=== PATIENT | male | born 1980 ===

== ENCOUNTER 2018-03-17 05:48 | Day surgery (SDC) | payer BC ==
[~2018-03-17] VITALS: Ht 193 cm; Wt 133.8 kg
[~2018-03-17 05:48] MED LIST: ALBU90OI6 INH; ALLEGRA ALLERGY60 MG PO; BUDE32NIS; GABA300 PO; GLUCHON PO; HYDACE5 PO; Omeprazole20 M1 PO; RHINOCORT ALL8.43 ML; RXHYDACE PO; [UNRECOGNIZED DRUG - OTHER]
== END 2018-03-17 22:39 | disposition home or self-care (01) ==
LOC: ORSCMMR 05:48 → ORD 07:30 → ORSCMMR 07:30
PROVIDERS: Orthopaedic Surgery
PROC: 0RBL0ZZ Excision of Right Elbow Joint, Open Approach (ICD-10-PCS; principal; 2018-03-17 07:30)
DX: M25.721 Osteophyte, right elbow (principal); J45.909 Unspecified asthma, uncomplicated; K21.9 Gastro-esophageal reflux disease without esophagitis; E66.9 Obesity, unspecified; Z68.35 Body mass index [BMI] 35.0-35.9, adult; Z79.899 Other long term (current) drug therapy
CPT/HCPCS: 73070; J0690; J1100; J1200; J1885; J2250; J2405; J3010; J7120

== ENCOUNTER → 2018-12-08 | Outpatient (CLI) | payer BC ==
[~2018-12-08] MED LIST changes: +FEBU40TA PO; +KETO60I IM
[2018-12-11 04:07] LABS: COTININE Negative ng/mL (Cutoff=300)
== END | disposition home or self-care (01) ==
LOC: LAB SHORT 13:45 → OLS 13:45
PROVIDERS: Orthopaedic Surgery
DX: Z01.812 Encounter for preprocedural laboratory examination (principal); M17.11 Unilateral primary osteoarthritis, right knee

== ENCOUNTER 2019-01-26 09:44 | Day surgery (SDC) | payer BC ==
[~2019-01-26] VITALS: Ht 198.1 cm; Wt 130.4 kg
--- NOTE | 2019-01-26 10:18 | NUR ---
History, Chart, Medications and Allergies reviewed before start of procedure. Patient confirms NPO status and agrees with scheduled surgery. NOZIN NASAL ACTIVITY ASSISTANT X3 AMPULES TO NARES BILREE.
--- NOTE | 2019-01-26 15:11 | NUR ---
PT WALKING WITH PHYSICAL THERAPY AT THIS TIME
--- NOTE | 2019-01-26 16:59 | NUR ---
POST OP: REPORT RECIEVED FROM HELMET COVERER TAMI. PT TO UNIT AT ABOUT 1320. UPON ASSESSMENT PT IS IN NO VISABLE DISTRESS, A/O. DENIES PAIN AT THIS TIME, SURGICAL SITE WNL. WILL CTM.
--- NOTE | 2019-01-26 19:19 | NUR ---
SUMMARY: PT IS POD0 R TKA, HAS DONE WELL SINCE RECIEVED POST OP. A/O, VSS. ABLE TO HAVE 1 SESSION WITH PHYSICAL THERAPY. MEDICATED FOR PAIN, SEE EMAR. TOLERATING REG DIET AND VOIDING. SURGICAL SITE WNL. REPORT GIVEN TO [place] RG.
--- NOTE | 2019-01-27 01:30 | NUR ---
0130: RECEIVED REPORT FROM PREVIOUS RN AND ASSUMED CARE. PT RESTING COMFORTABLY IN BED WITH CALL LIGHT IN REACH.
[2019-01-27 03:51] LABS: BASOPHILS ABSOLUTE AUTO 0.02 K/mm3 (0.00-0.23); BASOPHILS PERCENT AUTO 0 % (0-2); EOSINOPHILS ABSOLUTE AUTO 0.01 K/mm3 (0.00-0.68); EOSINOPHILS PERCENT AUTO 0 % (0-6); Hematocrit 39.6 % (37.0-53.0); Hemoglobin 13.7 g/dL (13.5-17.5); IMMATURE GRAN ABSOLUTE AUTO 0.06 K/mm3 (0.00-0.10); IMMATURE GRAN PERCENT AUTO 1 % (0-1); LYMPHOCYTES ABSOLUTE AUTO 1.47 K/mm3 (0.84-5.20); LYMPHOCYTES PERCENT AUTO 11 % (21-46); MONOCYTES ABSOLUTE AUTO 0.94 K/mm3 (0.16-1.47); MONOCYTES PERCENT AUTO 7 % (4-13); Mean Corpuscular HGB 32.1 pg (26.0-34.0); Mean Corpuscular HGB Conc 34.6 g/dL (31.5-36.5); Mean Corpuscular Volume 93 fL (80-100); Mean Platelet Volume 10.6 fL (9.1-12.4); NEUTROPHILS ABSOLUTE AUTO 10.46 K/mm3 (1.96-9.15); NEUTROPHILS PERCENT AUTO 81 % (41-73); Platelet Count 150 K/mm3 (150-400); RDW Coefficient Variation 13.4 % (11.7-14.2); RDW Standard Deviation 44.3 fL (35.1-46.3); Red Blood Cell Count 4.27 M/mm3 (4.30-5.90); White Blood Cell Count 12.96 K/mm3 (4.00-11.30)
[2019-01-27 04:10] LABS: Anion Gap 9 mmol/L (6-16); Blood Urea Nitrogen 15 mg/dL (8-24); Bun/Creatinine Ratio 17.9 (12.0-20.0); CO2, Blood 23 mmol/L (21-32); Calcium, Blood 8.2 mg/dL (8.5-10.1); Chloride, Blood 107 mmol/L (98-108); Creatinine, Blood 0.84 mg/dL (0.60-1.20); Glomerular Filtration Rate >60 (60-); Glucose, Blood 159 mg/dL (70-99); Potassium, Blood 4.7 mmol/L (3.5-5.5); Sodium, Blood 139 mmol/L (136-145)
--- NOTE | 2019-01-27 06:47 | NUR ---
SUMMARY: POD [address] NELSON. VSS, AFEBRILE, ROOM AIR. TOLERATING REG DIET, VOIDING WELL. AMBULATES HALLS WITH FWW X2 THIS SHIFT. PAIN WELL CONTROLLED WITH 10MG OXYCODONE. ANTICIPATE PT/OT AND DC HOME LATER THIS DAY.
[2019-01-27] MEDS ORDERED: Percocet 5-3251 EACH PO (09:16)
[2019-01-27] MEDS ORDERED: Aspir 8181 MG PO (09:17)
[2019-01-27] MEDS ORDERED: Celebrex200 MG PO (09:18)
--- NOTE | 2019-01-27 10:07 | NUR ---
PATIENT D/C'D HOME AT THIS TIME W/SPOUSE. PT STATES UNDERSTANDING OF MEDS, WOUND CARE, ACTIVITY, F/U APPT, OP PT, ETC. PAIN CONTROLLED WITH PO MEDS PER PT. VOIDING, TOLERATING PO. NO ACUTE CHANGES OR C/O AT THIS TIME.
== END 2019-01-27 10:10 | disposition home or self-care (01) ==
LOC: ORSCMMR 09:44 → ORD 10:45 → SURS 13:23 → ORSCMMR 01-27 10:10
PROVIDERS: Orthopaedic Surgery
PROC: 0SRC06A Replacement of Right Knee Joint with Oxidized Zirconium on Polyethylene Synthetic Substitute, Uncemented, Open Approach (ICD-10-PCS; principal; 2019-01-26 10:45)
DX: M17.31 Unilateral post-traumatic osteoarthritis, right knee (principal); Z01.818 Encounter for other preprocedural examination; J45.909 Unspecified asthma, uncomplicated; K21.9 Gastro-esophageal reflux disease without esophagitis; Z79.899 Other long term (current) drug therapy
CPT/HCPCS: 36415; 73560-RT; 80048; 85025; 86850; 86900; 86901; 88300; 97110; 97116; 97161; 97530; C1776; J0171; J0690; J0735; J1100; J1885; J2250; J2405; J2704; J2795; J3010; J7120

== ENCOUNTER 2019-03-16 10:08 | Day surgery (SDC) | payer BC ==
[~2019-03-16] VITALS: Ht 198.1 cm; Wt 126.7 kg
[~2019-03-16 10:08] MED LIST changes: +Aspir 8181 MG PO; +Celebrex200 MG PO; +IBUP600 PO; +Percocet 5-3251 EACH PO
--- NOTE | 2019-03-16 10:51 | NUR ---
Ambulatory in Day Surgery History, Chart, Medications and Allergies reviewed before start of procedure. Lungs clear T/O to Auscultation. Pre-Op teaching done. Pt verbalizes understanding. Patient States Post-Procedure ride home has been arranged.
--- NOTE | 2019-03-16 13:33 | NUR ---
Discharge instructions reviewed with patient. Patient verbalizes understanding. Copy given to patient to take home. Ambulated to BR with cane, steady gait. very painful. Ice therapy supplied for pt. Discharged via wheelchair to private car for ride home.
== END 2019-03-16 23:31 | disposition home or self-care (01) ==
LOC: ORSCMMR 10:08
PROVIDERS: Orthopaedic Surgery
PROC: 0SNCXZZ Release Right Knee Joint, External Approach (ICD-10-PCS; principal; 2019-03-16 11:00)
DX: M24.661 Ankylosis, right knee (principal); J45.909 Unspecified asthma, uncomplicated; Z79.899 Other long term (current) drug therapy
CPT/HCPCS: J1100; J1885; J2250; J2405; J2704; J3010; J3370; J7120

== ENCOUNTER 2020-02-11 08:11 | Day surgery (SDC) | payer BC ==
[~2020-02-11] VITALS: Ht 198.1 cm; Wt 133.4 kg
[~2020-02-11 08:11] MED LIST changes: +MELO7.5 PO
--- NOTE | 2020-02-11 09:10 | NUR ---
Ambulatory in Day Surgery. Surgical site prepped with 2% Chlorhexidine cloth wipe. Kassie Paws warming gown applied. History, Chart, Medications and Allergies reviewed before start of procedure.Lungs clear T/O to Auscultation. Patient confirms NPO status and agrees with scheduled surgery. Pre-Op teaching done. Pt verbalizes understanding. Patient States Post-Procedure ride home has been arranged. Patient reports completing Chlorhexadine shower X2 prior to admission to hospital.
--- NOTE | 2020-02-11 13:33 | NUR ---
Patient up to Ambulate independently. Gait steady. Dressing to procedure site clean, dry, intact with no visible drainage, swelling, erythema or bruising noted. Patient States Post-Procedure ride home has been arranged. Discharged via wheelchair to private car for ride home.
== END 2020-02-11 13:22 | disposition home or self-care (01) ==
LOC: ORSCMMR 08:11 → ORD 09:30 → ORSCMMR 13:22
PROVIDERS: Surgery
PROC: 8E0W4CZ Robotic Assisted Procedure of Trunk Region, Percutaneous Endoscopic Approach (ICD-10-PCS; principal; 2020-02-11 09:30)
PROC: 0YU54JZ Supplement Right Inguinal Region with Synthetic Substitute, Percutaneous Endoscopic Approach (ICD-10-PCS; principal; 2020-02-11 09:30)
DX: K40.91 Unilateral inguinal hernia, without obstruction or gangrene, recurrent (principal)
CPT/HCPCS: 49651; S2900; A9270; C1781; J0690; J1100; J1885; J2250; J2405; J2704; J3010; J7120

== ENCOUNTER 2020-03-06 11:36 | Day surgery (SDC) | payer BC ==
[~2020-03-06] VITALS: Ht 198.1 cm; Wt 136.6 kg
== END 2020-03-06 15:28 | disposition home or self-care (01) ==
LOC: ORSCSDS 11:36
PROVIDERS: Podiatrist Foot & Ankle Surgery
PROC: 0LBV0ZZ Excision of Right Foot Tendon, Open Approach (ICD-10-PCS; principal; 2020-03-06 13:00)
PROC: 0LQN0ZZ Repair Right Lower Leg Tendon, Open Approach (ICD-10-PCS; principal; 2020-03-06 13:00)
DX: M76.61 Achilles tendinitis, right leg (principal); M77.31 Calcaneal spur, right foot; J45.909 Unspecified asthma, uncomplicated; Z79.899 Other long term (current) drug therapy; E66.9 Obesity, unspecified; Z68.34 Body mass index [BMI] 34.0-34.9, adult
CPT/HCPCS: C1713; J0171; J0690; J1100; J2250; J2405; J2704; J3010; J7120

== ENCOUNTER 2023-04-21 16:34 | Emergency (ER) | payer BC ==
[~2023-04-21] VITALS: Ht 198.1 cm; Wt 131.1 kg
[2023-04-21 16:38] VITALS: BP 165/105
[2023-04-21] MEDS ORDERED: Vibramycin100 MG PO (17:51)
== END 2023-04-21 17:49 | disposition home or self-care (01) ==
LOC: ER 16:34
DX: J32.0 Chronic maxillary sinusitis (principal); Z79.899 Other long term (current) drug therapy; Z88.0 Allergy status to penicillin; Z88.1 Allergy status to other antibiotic agents; Z87.891 Personal history of nicotine dependence
CPT/HCPCS: 70450; 70486; 99284-25

== ENCOUNTER 2024-03-06 20:16 | Emergency (ER) | payer BC ==
[~2024-03-06] VITALS: Ht 198.1 cm; Wt 129.3 kg
[~2024-03-06 20:16] MED LIST changes: +Vibramycin100 MG PO
[2024-03-06 20:25] VITALS: BP 135/116
[2024-03-06] MEDS ORDERED: Diphth,Pertuss(Acell),Tet Vac 0.5 ML VIAL IM ONE (20:25)
== END 2024-03-06 21:32 | disposition home or self-care (01) ==
LOC: ER 20:16
DX: S51.811A Laceration without foreign body of right forearm, initial encounter (principal); G89.11 Acute pain due to trauma; Z88.0 Allergy status to penicillin; Z88.1 Allergy status to other antibiotic agents; Z79.899 Other long term (current) drug therapy; Z96.651 Presence of right artificial knee joint; W26.0XXA Contact with knife, initial encounter
CPT/HCPCS: 12001; 73090; 90471; 90715; 99283-25

== ENCOUNTER → 2024-04-21 | Outpatient (CLI) | payer BC | LOC: LAB SHORT 17:37 → LAB 17:37 | DX: L08.9 Local infection of the skin and subcutaneous tissue, unspecified (principal); Z71.89 Other specified counseling | CPT/HCPCS: 87070; 87077; 87186; 87205 ==